=== PATIENT | female | born 1945 | race Caucasian/White ===

== ENCOUNTER → 2020-03-27 | Outpatient (CLI) | payer OTHER ==
[~2020-03-27] MED LIST: IBUPROFEN 600600 M1 PO; NORCO 5-325 TA1 EACH PO; PEPCID20 MG PO
--- NOTE | 2020-03-28 17:06 | PATH ---
[facility] [address] [place] [address] PATHOLOGY RPT PROCEDURE Name: RHETT MOORE Room #: REG [facility] M.R.#: [id number] Admission: 03/27/20 Date of : 49 Discharge: Report #: [id number] Path Case #: [id number] [facility] Accession Number: [id number] . 01 Material submitted: . breast - LEFT BREAST, MEDIAL. Modifiers: left, medial . 01 Clinical history: . LEFT BREAST CALCIFICATIONS . 02 Diagnosis: Breast, left breast medial calcifications, stereotactic needle core biopsy: - Fragments with calcified fibroadenoma. - Coarse calcifications identified in association with fibroadenoma. - Negative for atypia or malignancy. . (IUV:mml; 03/28/2020) QLM 03/28/2020 1518 Local . 02 Electronically signed: . Mary Kearns MD, Pathologist NPI- [id number] . 01 Gross description: . The specimen is received in formalin, labeled "Rhett Moore, left breast medial" and consists of a white cassette containing multiple needle cores of yellow orange fibroadipose tissue measuring 2.3 x 1.5 x 0.6 cm which are transferred to cassette A1. Also received are multiple needle cores of yellow orange fibroadipose tissue measuring 6.6 x 1.2 x 0.4 cm in aggregate which are entirely submitted in A2-A3. The specimen was collected at 1:10 PM on 03/27/2020 and placed in formalin at 1:16 PM. The cold ischemic time is 6 minutes and the total formalin fixation time is greater than 6 hours less than 72 hours. (SDY; 03/27/2020) SYU/SYU 03/27/2020 1749 Local . 02 Pathologist provided ICD-10: D24.2 . 02 CPT . 616276 Specimen Comment: A courtesy copy of this report has been sent to [phone], [phone] Specimen Comment: [phone], , Specimen Comment: Report sent to ,DR MENDES,DR ALAS / DR FAIRBANKS Performed at: [address] [place] [address] PATHOLOGY RPT PROCEDURE Name: RHETT MOORE Room #: REG CLI .Alberto#: [id number] Admission: 03/27/20 Date of : 49 Discharge: Report #: [id number] Path Case #: [id number] [facility] [place] [address], [place], [place] [id number] MD Leo Campa MD Phone: [phone] Performed at: [address] [id number] MD Mary Kearns MD Phone: [phone]
== END | disposition home or self-care (01) ==
LOC: BC 10:29
PROVIDERS: ATTEND Surgery
DX: D24.2 Benign neoplasm of left breast (principal); R92.1 Mammographic calcification found on diagnostic imaging of breast